=== PATIENT | female | born 1965 | race American Indian/Alaskan Native ===

== ENCOUNTER 2017-02-03 13:48 | Emergency (ER) | payer MEDICAID ==
[2017-02-03] MEDS ORDERED: Acetaminophen/oxyCODONE 325-5 MG Tab PO ONE (15:01)
--- NOTE | 2017-02-03 15:32 | EDM.PDOC ---
ED HPI GENERAL MEDICAL PROBLEM - General Chief Complaint: General Stated Complaint: Lupus Time Seen by Provider: 02/03/17 14:45 Source of Information: Reports: Patient, RN Notes Reviewed History Limitations: Reports: No Limitations - History of Present Illness INITIAL COMMENTS - FREE TEXT/NARRATIVE: 52 year old female presents to the ED with complaints of bilateral hand and ankle pain and swelling for the past few days. This past year she was diagnosed with Lupus. She is from [place] but is in [place] staying with her daughter for a couple weeks. She saw her Black Studies Professor in December and was started on some new medication. She does not know the name of her medications. She is not currently on any pain medication. She has taken Percocet in the past without problems. She says she's been on steroids before in the past but they were stopped because they were giving her problems. She has a primary care provider in [place] as well. No fever, chills, chest pain, shortness of breath, abdominal pain, nausea, or vomiting. 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 Denies: Fever, Chills HEENT: Reports: No Symptoms. Denies: Vision Change Respiratory: Reports: No Symptoms. Denies: Shortness of Breath, Cough Cardiovascular: Reports: No Symptoms. Denies: Chest Pain GI/Abdominal: Reports: No Symptoms. Denies: Abdominal Pain, Nausea, Vomiting Musculoskeletal: Reports: Hand Pain, Other (ankle pain). Denies: Neck Pain Skin: Reports: No Symptoms. Denies: Rash Neurological: Reports: No Symptoms. Denies: Confusion, Dizziness, Headache, Numbness, Tingling, Weakness ED EXAM, GENERAL - Physical Exam Exam: See Below Exam Limited By: No Limitations General Appearance: Alert, WD/WN, No Apparent Distress Eye Exam: Bilateral Eye: EOMI, PERRL Respiratory/Chest: No Respiratory Distress, Lungs Clear, Normal Breath Sounds Cardiovascular: Normal Peripheral Pulses, Regular Rate, Rhythm, No Murmur GI/Abdominal: Normal Bowel Sounds, Soft, Non-Tender Extremities: Other (no current swelling or erythema to hands or ankles as reported in history) Neurological: Alert, Normal Cognition, No Motor/Sensory Deficits Skin Exam: Warm, Dry, Intact Course - Vital Signs Last Recorded V/S: Last Vital Signs Temp 98.2 F 02/03/17 14:26 Pulse 68 02/03/17 14:26 Resp 16 02/03/17 14:26 BP 152/91 H 02/03/17 14:26 Pulse Ox 99 02/03/17 14:26 - Orders/Labs/Meds Meds: Medications Discontinued Medications Generic Name Dose Route Start Last Admin Trade Name Rebecca PRN Reason Stop Dose Admin Oxycodone/Acetaminophen 1 tab 02/03/17 15:01 02/03/17 15:24 Percocet 325-5 Mg PO 02/03/17 15:02 1 tab ONETIME ONE Administration - Re-Assessments/Exams Free Text/Narrative Re-Assessment/Exam: The patient is unsure what medications she is taking. Plan will be to give her pain medication and have her call her PCP and Black Studies Professor tomorrow. Discussed starting the patient on steroids but she says these made "things worse " in the past. I am reluctant to start her on any steroids at this since she reports adverse effects in the past and the fact that she is unsure what medications she is taking. Discussed with Dr. Perez who agrees with plan of care. Departure - Departure Time of Disposition: 15:32 Disposition: Home, Self-Care 01 Condition: Good Clinical Impression: Joint pain Qualifiers: Joint pain location: unspecified Qualified Code(s): M25.50 - Pain in unspecified joint - Discharge Information Prescriptions: oxyCODONE HCl/Acetaminophen [Oxycodone-Acetaminophen 5-325] 1 each PO Q6H PRN # 15 tablet PRN Reason: Pain Forms: ED Department Discharge Additional Instructions: Call your Black Studies Professor and primary care provider tomorrow to discuss your symptoms Percocet 1 tab every 6 hours as needed for pain Do not drive for at least 8 hours after taking Percocet
[2017-02-03 16:57] VITALS: BP 150/99
== END 2017-02-03 16:00 | disposition home or self-care (01) ==
LOC: JD.ED 13:48
DX: M25.50 Pain in unspecified joint (principal); I10 Essential (primary) hypertension; F17.210 Nicotine dependence, cigarettes, uncomplicated
CPT/HCPCS: 99284; A9270; 99283

== ENCOUNTER 2017-02-10 11:58 | Emergency (ER) | payer MEDICAID ==
[2017-02-10 12:19] VITALS: BP 178/91
--- NOTE | 2017-02-10 13:15 | EDM.PDOC ---
ED HPI GENERAL MEDICAL PROBLEM - General Chief Complaint: Back Pain or Injury Stated Complaint: JOINT PAIN AND BACK PAIN Time Seen by Provider: 02/10/17 12:19 Source of Information: Reports: Patient, RN Notes Reviewed History Limitations: Reports: No Limitations - History of Present Illness INITIAL COMMENTS - FREE TEXT/NARRATIVE: The patient states that she has been experiencing pain to her bilateral MCP joints, PIP joints, ankles, and low back, for about the past 3 weeks. She was seen in this ED 02/03/2017 for the same complaints. No tests were done, but the patient was prescribed Percocet. She was instructed to follow-up, which she has not. The patient states that she is visiting her daughter from [place], and will not be returning home until 02/19/2017. She states that while she has not followed up since her last ED visit, she did contact the office of her Inverform Machine Operator/pain specialist, Dr. Donaldo Monroy, and that she has an appointment to see him on 02/25/2017. The patient was previously prescribed imipramine and vitamin B6, however, she has not filled these prescriptions. Currently, the only prescription that she has from Dr. Monroy is Plaquenil. The remainder of her medications are prescribed by her PCP, Dr. Donis. The patient states that she has previously been treated with steroids, but was discontinued this past November,. Back Pain Score (Numeric/FACES): 7 Generalized Pain Score (Numeric/FACES): 7 - Related Data Allergies Allergy/AdvReac Type Severity Reaction Status Date / Time No Known Allergies Allergy Verified 02/03/17 14:26 Home Meds: Home Meds Betamethasone/Propylene Glyc [Betamethasone DP Aug 0.05%] 1 dose TOP BID PRN 04/12 [History] Fluticasone Propionate [Flovent] 2 spray H[place]ILTON DAILY 02/03/17 [History] Gabapentin [Neurontin] 3 cap PO BEDTIME 02/03/17 [History] Hydroxychloroquine [Plaquenil] 1 tab PO DAILY 02/03/17 [History] Imipramine HCl 20 mg PO BID 02/03/17 [History] Ipratropium [Atrovent] 2 spray H[place]ILTON BEDTIME 02/03/17 [History] Pyridoxine HCl (Vitamin B6) [B-6] 50 mg PO DAILY 02/03/17 [History] Albuterol Sulfate [Proventil Hfa] 1 dose INH ASDIRECTED PRN 02/10/17 [History] Cetirizine HCl [All Day Allergy] 10 mg PO DAILY 02/10/17 [History] EPINEPHrine [Epipen] 0.3 mg IM ONETIME PRN 02/10/17 [History] Imipramine HCl 1 tab PO TID #90 tablet 02/10/17 [Rx] Lisinopril 40 mg PO DAILY 02/10/17 [History] Omeprazole 20 mg PO DAILY 02/10/17 [History] Propylene Glycol/PEG 400/Pf [Systane Ultra 0.4-0.3% Eye Drp] 1 each OP DAILY [History] Triamcinolone Acetonide [Triamcinolone Acetonide 0.1% Crm] 1 applic TOP ASDIRECTED PRN 02/10/17 [History] hydrOXYzine HCl [Atarax] 25 mg PO BEDTIME 02/10/17 [History] Past Medical History Cardiovascular History: Reports: Hypertension Gastrointestinal History: Reports: GERD Genitourinary History: Reports: Urinary Incontinence 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 Right: 1 open), Other (See Below) (Bilateral feet bone spur removal. Left bunionectomy.) Social & Family History - Tobacco Use Smoking Status *Q: Current Every Day Smoker Years of Tobacco use: 30 Packs/Tins Daily: 0.4 - Caffeine Use Caffeine Use: Reports: Coffee - Alcohol Use Alcohol Use History: Yes Alcohol Use Frequency: Socially - Recreational Drug Use Recreational Drug Use: No - Living Situation & Occupation Living situation: Reports: Single, Alone Occupation: Unemployed ED ROS GENERAL - Review of Systems Review Of Systems: See Below Constitutional: Reports: Chills HEENT: Reports: No Symptoms Respiratory: Reports: No Symptoms Cardiovascular: Reports: No Symptoms Endocrine: Reports: No Symptoms GI/Abdominal: Reports: No Symptoms : Reports: No Symptoms Musculoskeletal: Reports: No Symptoms Skin: Reports: No Symptoms Neurological: Reports: Headache Psychiatric: Reports: No Symptoms Hematologic/Lymphatic: Reports: No Symptoms Immunologic: Reports: No Symptoms ED EXAM, GENERAL - Physical Exam Exam: See Below Exam Limited By: No Limitations General Appearance: Alert, WD/WN, No Apparent Distress Extremities: Other (No significant swelling or synovitis noted to any of the MCP or PIP joints. No apparent pain with handshake. No significant ankle swelling. No calor to any joint. No visible abnormality to the low back, and no tenderness to palpation.) Neurological: Alert, Oriented, Normal Cognition Psychiatric: Normal Affect Skin Exam: Warm, Dry, Intact, Normal Color, No Rash Course - Vital Signs Last Recorded V/S: Last Vital Signs Temp 36.9 C 02/10/17 12:13 Pulse 80 02/10/17 12:13 Resp 18 02/10/17 12:13 BP 178/91 H 02/10/17 12:13 Pulse Ox 98 02/10/17 12:13 - Orders/Labs/Meds Labs: Laboratory Tests 02/10/17 02/10/17 02/10/17 Range/Units 13:24 13:24 13:25 WBC 4.47 (3.98-10.04) K/mm3 RBC 4.46 (3.98-5.22) M/mm3 Hgb 13.1 (11.2-15.7) gm/L Hct 40.2 (34.1-44.9) % MCV 90.1 (79.4-94.8) fl MCH 29.4 (25.6-32.2) pg MCHC 32.6 (32.2-35.5) g/dl RDW Std Deviation 46.6 H (36.4-46.3) fL Plt Count 288 (182-369) K/mm3 MPV 9.5 (9.4-12.3) fl Neutrophils % (Manual) 37 L (40-60) % Band Neutrophils % 0 (0-10) % Lymphocytes % (Manual) 52 H (20-40) % Atypical Lymphs % 0 % Monocytes % (Manual) 9 (2-10) % Eosinophils % (Manual) 2 (0.7-5.8) % Basophils % (Manual) 0 L (0.1-1.2) Platelet Estimate Adequate RBC Morph Comment Normal Sodium 143 (136-145) mEq/L Potassium 4.3 (3.5-5.1) mEq/L Chloride 106 (98-107) mEq/L Carbon Dioxide 27 (21-32) mEq/L Anion Gap 14.3 (5-15) BUN 11 (7-18) mg/dL Creatinine 0.7 (0.55-1.02) mg/dL Est Cr Clr Drug Dosing 76.00 mL/min Estimated GFR (MDRD) > 60 (>60) mL/min BUN/Creatinine Ratio 15.7 (14-18) Glucose 99 (74-106) mg/dL Calcium 9.5 (8.5-10.1) mg/dL Urine Color Yellow (Yellow) Urine Appearance Clear (Clear) Urine pH 7.0 (5.0-8.0) Ur Specific [place] 1.015 (1.005-1.030) Urine Protein Negative (Negative) Urine Glucose (UA) Negative (Negative) Urine Ketones Negative (Negative) Urine Occult Blood Negative (Negative) Urine Nitrite Negative (Negative) Urine Bilirubin Negative (Negative) Urine Urobilinogen 0.2 (0.2-1.0) Ur Leukocyte Esterase Trace H (Negative) Urine RBC Not seen (0-5) /hpf Urine WBC 0-5 (0-5) /hpf Ur Epithelial Cells 0-5 (0-5) /hpf Urine Bacteria Not seen (FEW) /hpf Urine Mucus Not seen (FEW) /hpf Urine Trichomonas Present - Re-Assessments/Exams Free Text/Narrative Re-Assessment/Exam: 02/10/17 13:12 Case discussed at length with the patient's Inverform Machine Operator and pain specialist, Dr. Monroy, at 12:57. He is not sure that the patient has SLE. He feels she more than likely has Sjogren's. He recommends we avoid opioids. He does not feel that she is having a flare, since she did not appear to have pain with handshakes. He is recommending that we check a CBC, BMP, and urinalysis, and if otherwise normal, start the patient on imipramine 10 mg TID. If she develops drowsiness with this, he recommends she switches to 30 mg QHS. If, after a few days, she does not develop drowsiness, he recommends that she increase the dosage to 20 mg TID. 02/10/17 14:43 The patient's CBC, BMP, and urinalysis are all unremarkable. We do not carry imipramine 10 mg; I will e-prescribe. Departure - Departure Time of Disposition: 14:44 Disposition: Home, Self-Care 01 Condition: Good Clinical Impression: Joint ache - Discharge Information Prescriptions: Imipramine HCl 1 tab PO TID #90 tablet Referrals: PCP,Not In Area [Primary Care Provider] - Forms: ED Department Discharge Additional Instructions: You were seen in the emergency room for recurrent joint aches in your hands and ankles, and low back pain. Workup in the ER included blood work and a urinalysis, all of which were normal. After discussion with your Inverform Machine Operator/pain physician, Dr. Monroy, you have been prescribed imipramine. This prescription was called into the [facility] on [address]. Take one tablet 3 times a day. If this causes drowsiness, switch to 3 tablets at bedtime. If, after 3 days, you do not have drowsiness, increase your dosage to 3 tablets 3 times a day. Follow-up with Dr. Monroy at the next available appointment. If any other problems, please do not hesitate to return to the ER.
== END 2017-02-10 14:55 | disposition home or self-care (01) ==
LOC: JD.ED 11:58
DX: M25.572 Pain in left ankle and joints of left foot (principal); M25.571 Pain in right ankle and joints of right foot; M25.542 Pain in joints of left hand; M25.541 Pain in joints of right hand; M54.5 Low back pain; I10 Essential (primary) hypertension; K21.9 Gastro-esophageal reflux disease without esophagitis; G62.9 Polyneuropathy, unspecified; F32.9 Major depressive disorder, single episode, unspecified; F17.210 Nicotine dependence, cigarettes, uncomplicated; Z98.49 Cataract extraction status, unspecified eye; Z98.51 Tubal ligation status; Z98.890 Other specified postprocedural states; Z79.899 Other long term (current) drug therapy
CPT/HCPCS: 36415; 80048; 81001; 85025; 99283

== ENCOUNTER 2017-02-13 14:56 | Emergency (ER) | payer MEDICAID ==
[2017-02-13 15:24] VITALS: BP 125/83
[2017-02-13] MEDS ORDERED: Ketorolac 30 MG/ML SDV IM ONE (16:15)
[2017-02-13] MEDS ORDERED: diphenhydrAMINE 50 MG/ML SDV IM ONE (16:15)
--- NOTE | 2017-02-13 16:19 | EDM.PDOC ---
ED HPI GENERAL MEDICAL PROBLEM - General Chief Complaint: Skin Complaint Stated Complaint: BACK PAIN Time Seen by Provider: 02/13/17 16:06 Source of Information: Reports: Patient History Limitations: Reports: No Limitations - History of Present Illness INITIAL COMMENTS - FREE TEXT/NARRATIVE: 52 year old female presents for evaluation and treatment of a reaction to her hair dye. Patient reports she used an at home hair dye product Alvaro night and developed a reaction to the product. She reports she has rinsed her hair since using the product. She reports pruritus and discomfort to the scalp. Describes the discomfort as a "heaviness". Denies any chest pain, nausea or vomiting. She stats she feels short of breath. She did not take any benadryl or other OTC product as she did not have any at home. Patient is sleeping when I enter the room. As I am walking out of the room after completing my H&P, the patient asks for something for pain. When I asked what is causing her pain she starts listing her back, feet, joints.. and trails off. I feel she may be drug seeking. Headache Pain Score (Numeric/FACES): 8 - Related Data Allergies Allergy/AdvReac Type Severity Reaction Status Date / Time hair dye Allergy Rash Uncoded 02/14/17 15:53 Home Meds: Home Meds Betamethasone/Propylene Glyc [Betamethasone DP Aug 0.05%] 1 dose TOP BID PRN 04/12 [History] Fluticasone Propionate [Flovent] 2 spray HAMILTON DAILY 02/03/17 [History] Gabapentin [Neurontin] 3 cap PO BEDTIME 02/03/17 [History] Hydroxychloroquine [Plaquenil] 1 tab PO DAILY 02/03/17 [History] Imipramine HCl 20 mg PO BID 02/03/17 [History] Ipratropium [Atrovent] 2 spray [place]AMILTON BEDTIME 02/03/17 [History] Pyridoxine HCl (Vitamin B6) [B-6] 50 mg PO DAILY 02/03/17 [History] Albuterol Sulfate [Proventil Hfa] 1 dose INH ASDIRECTED PRN 02/10/17 [History] Cetirizine HCl [All Day Allergy] 10 mg PO DAILY 02/10/17 [History] EPINEPHrine [Epipen] 0.3 mg IM ONETIME PRN 02/10/17 [History] Imipramine HCl 1 tab PO TID #90 tablet 02/10/17 [Rx] Lisinopril 40 mg PO DAILY 02/10/17 [History] Omeprazole 20 mg PO DAILY 02/10/17 [History] Propylene Glycol/PEG 400/Pf [Systane Ultra 0.4-0.3% Eye Drp] 1 each OP DAILY [History] Triamcinolone Acetonide [Triamcinolone Acetonide 0.1% Crm] 1 applic TOP ASDIRECTED PRN 02/10/17 [History] hydrOXYzine HCl [Atarax] 25 mg PO BEDTIME 02/10/17 [History] predniSONE [Deltasone] 20 mg PO BID #14 tablet 02/14/17 [Rx] Past Medical History Cardiovascular History: Reports: Hypertension Respiratory History: Reports: SOB Gastrointestinal History: Reports: GERD Genitourinary History: Reports: Urinary Incontinence 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: Musculoskeletal History: Reports: Fibromyalgia, Other (See Below) Other Musculoskeletal History: pt has lupus/sjogren's syndrome Neurological History: Reports: Neuropathy, Peripheral Psychiatric History: Reports: Depression Immunologic History: Reports: Other (See Below) Dermatologic History: Reports: Eczema - Past Surgical History HEENT Surgical History: Reports: Cataract Surgery Female Surgical History: Reports: Tubal Ligation Musculoskeletal Surgical History: Reports: Shoulder Surgery, Other (See Below) Social & Family History - Family History Family Medical History: Noncontributory - Tobacco Use Smoking Status *Q: Current Every Day Smoker Years of Tobacco use: 30 Packs/Tins Daily: 0.3 - Caffeine Use Caffeine Use: Reports: Coffee - Recreational Drug Use Recreational Drug Use: No - Living Situation & Occupation Living situation: Reports: Single, Alone Occupation: Unemployed ED ROS GENERAL - Review of Systems Review Of Systems: See Below Respiratory: Reports: Shortness of Breath Cardiovascular: Denies: Chest Pain GI/Abdominal: Denies: Nausea, Vomiting Musculoskeletal: Reports: Back Pain, Foot Pain, Joint Pain Skin: Reports: Pruritis (scalp) ED EXAM, SKIN/RASH Exam: See Below Exam Limited By: No Limitations General Appearance: Alert, WD/WN, No Apparent Distress Eye Exam: Bilateral Eye: Normal Inspection Ears: Normal External Exam Nose: Normal Inspection Throat/Mouth: Normal Inspection, Normal Lips, Normal Voice, No Airway Compromise Head: Atraumatic, Normocephalic Neck: Normal Inspection Respiratory/Chest: No Respiratory Distress, Lungs Clear, Normal Breath Sounds Cardiovascular: Normal Peripheral Pulses, Regular Rate, Rhythm, No Murmur Neurological: Alert, Oriented, Normal Cognition Psychiatric: Normal Affect, Normal Mood Skin: Warm, Dry, Normal Color Location, Skin: Head (scalp described as a heaviness and pruritus) Associated features: Crusting (to the posterior left ear with matted hair stuck to hte area) Course - Vital Signs Last Recorded V/S: Last Vital Signs Temp 37.3 C 02/13/17 15:19 Pulse 80 02/13/17 15:19 Resp 20 02/13/17 15:19 BP 125/83 02/13/17 15:19 Pulse Ox 100 02/13/17 15:19 - Orders/Labs/Meds Meds: Medications Discontinued Medications Generic Name Dose Route Start Last Admin Trade Name Rebecca PRN Reason Stop Dose Admin Diphenhydramine HCl 50 mg 02/13/17 16:15 02/13/17 16:49 Benadryl IM 02/13/17 16:16 50 mg ONETIME ONE Administration Ketorolac Tromethamine 30 mg 02/13/17 16:15 02/13/17 16:48 Toradol IM 02/13/17 16:16 30 mg ONETIME ONE Administration Ketorolac Tromethamine Confirm 02/13/17 16:37 02/13/17 16:50 Toradol Administered 02/13/17 16:38 Not Given Dose 30 mg .ROUTE .STK-MED ONE - Re-Assessments/Exams Free Text/Narrative Re-Assessment/Exam: 02/13/17 16:10 Patient searched on [facility] aware to include [place]. 20 Rx from 9 prescribers within the last year for controlled substances. Most recently percocoet 5-325 # 15 on 02-03-17 and gabapentin 400mg #90 on 02-10-17. I will give her some benadryl for her symptoms and toradol for the pain. I reviewed her recent ER records. During her last visit, the ER provider spoke with her senior c web developer in [place] who recommended against prescribing narcotics for her pain. Departure - Departure Time of Disposition: 16:16 Disposition: Home, Self-Care 01 Condition: Fair Clinical Impression: Dermatitis - Discharge Information Instructions: Contact Dermatitis, [id number] Referrals: PCP,Not In Area [Primary Care Provider] - Forms: ED Department Discharge Additional Instructions: Avoid using the hair dye in the future. benadryl and Toradol given for symptom relief in the ER today. Take Benadryl every 6 hours for the next 2-3 days to help with your symptom relief. Rinse your hair again tonight. Please return to the ER if your symptoms change or worsen.
[2017-02-13] MEDS ORDERED: Ketorolac 30 MG/ML SDV ONE (16:37)
== END 2017-02-13 17:38 | disposition home or self-care (01) ==
LOC: JD.ED 14:56
DX: L30.9 Dermatitis, unspecified (principal); I10 Essential (primary) hypertension; K21.9 Gastro-esophageal reflux disease without esophagitis; F32.9 Major depressive disorder, single episode, unspecified; Z98.49 Cataract extraction status, unspecified eye; F17.210 Nicotine dependence, cigarettes, uncomplicated; Z91.048 Other nonmedicinal substance allergy status; Z79.899 Other long term (current) drug therapy
CPT/HCPCS: 96372; 99283; J1200; J1885

== ENCOUNTER 2017-02-14 15:39 | Emergency (ER) | payer MEDICAID ==
[2017-02-14 15:53] VITALS: BP 121/85
--- NOTE | 2017-02-14 16:45 | EDM.PDOC ---
ED HPI GENERAL MEDICAL PROBLEM - General Chief Complaint: ENT Problem Stated Complaint: EYES SWOLLEN Time Seen by Provider: 02/14/17 16:44 Source of Information: Reports: Patient History Limitations: Reports: No Limitations - History of Present Illness INITIAL COMMENTS - FREE TEXT/NARRATIVE: 52-year-old female presents to the ED with increased problems from contact dermatitis with hair dye that she used a few days ago to dye her hair. She was here yesterday and had developed a contact dermatitis mainly involving the skin of the nape of her neck and upper back. She presents today because of marked swelling of her eyes particularly upper eyelids they are markedly edematous and swollen. Forehead is erythematous scalp is losing serous material from the severe dermatitis similarly she has blistering and serous drainage from the tops of her earlobes and posterior to her ears. This area is also very pruritic. She was prescribed Benadryl yesterday which she is taking 50 mg every 6 hours. Onset: Gradual (Symptoms started 3 days ago.) Onset Date: 02/11/17 Duration: Day(s): Location: Reports: Head (Particularly the scalp.), Face, Neck Quality: Reports: Burning, Other Severity: Severe (Oozing serous fluid) Improves with: Reports: None Worsens with: Reports: None Context: Reports: Other (Symptoms started after using hair dye to blacken her hair. 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) Ear Pain Score (Numeric/FACES): 8 - Related Data Allergies Allergy/AdvReac Type Severity Reaction Status Date / Time hair dye Allergy Rash Uncoded 02/14/17 15:53 Home Meds: Home Meds Betamethasone/Propylene Glyc [Betamethasone DP Aug 0.05%] 1 dose TOP BID PRN 04/12 [History] Fluticasone Propionate [Flovent] 2 spray HAMILTON DAILY 02/03/17 [History] Gabapentin [Neurontin] 3 cap PO BEDTIME 02/03/17 [History] Hydroxychloroquine [Plaquenil] 1 tab PO DAILY 02/03/17 [History] Imipramine HCl 20 mg PO BID 02/03/17 [History] Ipratropium [Atrovent] 2 spray HAMILTON BEDTIME 02/03/17 [History] Pyridoxine HCl (Vitamin B6) [B-6] 50 mg PO DAILY 02/03/17 [History] Albuterol Sulfate [Proventil Hfa] 1 dose INH ASDIRECTED PRN 02/10/17 [History] Cetirizine HCl [All Day Allergy] 10 mg PO DAILY 02/10/17 [History] EPINEPHrine [Epipen] 0.3 mg IM ONETIME PRN 02/10/17 [History] Imipramine HCl 1 tab PO TID #90 tablet 02/10/17 [Rx] Lisinopril 40 mg PO DAILY 02/10/17 [History] Omeprazole 20 mg PO DAILY 02/10/17 [History] Propylene Glycol/PEG 400/Pf [Systane Ultra 0.4-0.3% Eye Drp] 1 each OP DAILY [History] Triamcinolone Acetonide [Triamcinolone Acetonide 0.1% Crm] 1 applic TOP ASDIRECTED PRN 02/10/17 [History] hydrOXYzine HCl [Atarax] 25 mg PO BEDTIME 02/10/17 [History] predniSONE [Deltasone] 20 mg PO BID #14 tablet 02/14/17 [Rx] Past Medical History Cardiovascular History: Reports: Hypertension Respiratory History: Reports: SOB Gastrointestinal History: Reports: GERD Genitourinary History: Reports: Urinary Incontinence 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: Musculoskeletal History: Reports: Fibromyalgia, Other (See Below) Other Musculoskeletal History: pt has lupus/sjogren's syndrome Neurological History: Reports: Neuropathy, Peripheral Psychiatric History: Reports: Depression Immunologic History: Reports: Other (See Below) Dermatologic History: Reports: Eczema - Past Surgical History HEENT Surgical History: Reports: Cataract Surgery Female Surgical History: Reports: Tubal Ligation Musculoskeletal Surgical History: Reports: Shoulder Surgery, Other (See Below) Social & Family History - Family History Family Medical History: Noncontributory - Tobacco Use Smoking Status *Q: Current Every Day Smoker Years of Tobacco use: 20 Packs/Tins Daily: 0.2 - Caffeine Use Caffeine Use: Reports: Coffee - Recreational Drug Use Recreational Drug Use: No - Living Situation & Occupation Living situation: Reports: Single, Alone Occupation: Unemployed ED ROS GENERAL - Review of Systems Review Of Systems: See Below Constitutional: Denies: Fever, Chills, Malaise, Weakness, Fatigue, Diaphoresis, Decreased Appetite, Weight Loss HEENT: Reports: Ear Pain (Her pain from the ear pinnas and drainage from blistering on the tops of the earlobes and drainage from the scalp behind her ears bilaterally worse on the left as compared to the right.), Other (Eyes are very swollen in fact nearly closed on the right side due to edema in the eyelids.). Denies: Eye Discharge Respiratory: Reports: Shortness of Breath (No worse than normal.) Cardiovascular: Reports: No Symptoms Endocrine: Reports: Fatigue (From the Benadryl.) GI/Abdominal: Reports: Constipation Musculoskeletal: Reports: Muscle Pain (Patient has generalized muscular pain from fibromyalgia syndrome. She apparently also has systemic lupus. She is on plaque with no for this.) Skin: Reports: Erythema (Skin of the scalp is erythematous and oozing serous material. There is crusting and serous material in the earlobes and posterior to ears bilaterally. The forehead is erythematous but skin is intact without blisters. Both eyes are markedly swollen and edematous particular the upper lids . Right eyelid is worse than the left.) Neurological: Reports: No Symptoms Psychiatric: Reports: No Symptoms ED EXAM GENERAL W FULL EYE - Physical Exam Exam: See Below Exam Limited By: No Limitations General Appearance: Moderate Distress, Other (Eyes are very swollen bilaterally particularly the upper lids are edematous worse on the right as compared to the left.) Eye Exam: Bilateral Eye: Normal Fundi, Periorbital Changes (Marked swelling of the upper and lower eyelids bilaterally right greater than left. The right is so swollen that she can barely see out of this eye.), PERRL Cornea Exam: Bilateral: Normal Appearance Ears: Other (Patient has inflammation and swelling of the earlobes particularly superiorly and posterior tear ears. There is some mild blistering and serous drainage) Nose: Normal Inspection Throat/Mouth: Normal Inspection, Normal Oropharynx Head: Other (Scalp is very tender and swollen and is oozing serous material as well from contact dermatitis inflammation.) Neck: Other (No blisters in this area. Forehead is also erythematous without blistering.). No: Lymphadenopathy (L), Lymphadenopathy (R) Respiratory/Chest: No Respiratory Distress, Lungs Clear, No Accessory Muscle Use Course - Vital Signs Last Recorded V/S: Last Vital Signs Temp 37.3 C 02/14/17 15:47 Pulse 98 02/14/17 15:47 Resp 18 02/14/17 15:47 BP 121/85 02/14/17 15:47 Pulse Ox 96 02/14/17 15:47 - Orders/Labs/Meds Meds: Medications Discontinued Medications Generic Name Dose Route Start Last Admin Trade Name Rebecca PRN Reason Stop Dose Admin Methylprednisolone Sodium Succinate 125 mg 02/14/17 17:37 Solu-Medrol IM 02/14/17 17:38 ONETIME ONE - Radiology Interpretation Free Text/Narrative:: 52-year-old female presents to the ED with an acute severe allergic response to hair dye. This is created a contact dermatitis of the scalp involving her ears negative neck lateral neck skin and eyelids are markedly swollen and edematous bilaterally. Forehead is mildly erythematous without blistering. Scalp is oozing serous material from it severe allergic response. Plan Solu-Medrol 125 mg IM. Prednisone 20 mg with breakfast and supper for the next 7 consecutive days. Departure - Departure Time of Disposition: 17:37 Disposition: Home, Self-Care 01 Condition: Fair Clinical Impression: Contact dermatitis Qualifiers: Contact dermatitis type: allergic Contact dermatitis trigger: dye Qualified Code(s): L23.4 - Allergic contact dermatitis due to dyes - Discharge Information Prescriptions: predniSONE [Deltasone] 20 mg PO BID #14 tablet Referrals: PCP,Not In Area [Primary Care Provider] - Forms: ED Department Discharge Additional Instructions: Evaluation in the emergency room today in regards to obvious marked swelling of the eye lids with large amount of fluid accumulation in both upper and lower eyelids worse on the right as compared to the left. Also noted is blistering in serous drainage from the scalp as well as the earlobes with marked erythema and rash nape of neck. This appears to be a severe allergic reaction or contact dermatitis from hair dye. Treated today with intramuscular Solu-Medrol 125 mg and then you are to take oral Deltasone 20 mg with breakfast and supper for the next 7 days. First tablet would be due tomorrow morning. Once the skin is been in contact with the hair dye it causes a continued allergic response for approximately 1 week. Of course no further use of hair dyes in the future.
[2017-02-14] MEDS ORDERED: methylPREDNISolone Sodium Succinate 125 MG/2 ML SDV IM ONE (17:37)
== END 2017-02-14 17:50 | disposition home or self-care (01) ==
LOC: JD.ED 15:39
DX: L23.4 Allergic contact dermatitis due to dyes (principal); F17.210 Nicotine dependence, cigarettes, uncomplicated; I10 Essential (primary) hypertension; K21.9 Gastro-esophageal reflux disease without esophagitis; F32.9 Major depressive disorder, single episode, unspecified; Z98.49 Cataract extraction status, unspecified eye; Z98.51 Tubal ligation status; Z98.890 Other specified postprocedural states; Z79.899 Other long term (current) drug therapy; Z91.048 Other nonmedicinal substance allergy status
CPT/HCPCS: 96372; 99283; J2930

== ENCOUNTER 2017-02-16 13:37 | Emergency (ER) | payer MEDICAID ==
[2017-02-16 14:17] VITALS: BP 133/86
[2017-02-16] MEDS ORDERED: predniSONE 20 MG Tab PO ONE (14:55)
--- NOTE | 2017-02-16 14:57 | EDM.PDOC ---
ED HPI GENERAL MEDICAL PROBLEM - General Chief Complaint: Back Pain or Injury Stated Complaint: chemical burn Time Seen by Provider: 02/16/17 14:28 Source of Information: Reports: Patient History Limitations: Reports: No Limitations - History of Present Illness INITIAL COMMENTS - FREE TEXT/NARRATIVE: 52-year-old female presents to the ED complaining of contact dermatitis to the head, eyes, ears, and neck from hair dye applied a few days ago. Patient was evaluated in the E.D. 02/14/27 and prescribed prednisone. Patient has not filled this medication since she can't afford it. She will be seeing her PCP the of this month for reevaluation. Patient is accompanied to the E.D. with her daughter. Dermatitis to the head, neck, and face are improving. She only has draining from behind the ears. This is improving as well. Eyes remain swollen but improving. No visual disturbances noted. Continues to take benadryl for itching. Denies any additional complaints at this time. Lower Back Pain Score (Numeric/FACES): 8 - Related Data Allergies Allergy/AdvReac Type Severity Reaction Status Date / Time hair dye Allergy Rash Uncoded 02/16/17 19:01 Home Meds: Home Meds Betamethasone/Propylene Glyc [Betamethasone DP Aug 0.05%] 1 dose TOP BID PRN 04/12 [History] Fluticasone Propionate [Flovent] 2 spray [place] DAILY 02/03/17 [History] Gabapentin [Neurontin] 3 cap PO BEDTIME 02/03/17 [History] Hydroxychloroquine [Plaquenil] 1 tab PO DAILY 02/03/17 [History] Imipramine HCl 20 mg PO BID 02/03/17 [History] Ipratropium [Atrovent] 2 spray [place] BEDTIME 02/03/17 [History] Pyridoxine HCl (Vitamin B6) [B-6] 50 mg PO DAILY 02/03/17 [History] Albuterol Sulfate [Proventil Hfa] 1 dose INH ASDIRECTED PRN 02/10/17 [History] Cetirizine HCl [All Day Allergy] 10 mg PO DAILY 02/10/17 [History] Imipramine HCl 1 tab PO TID #90 tablet 02/10/17 [Rx] Lisinopril 40 mg PO DAILY 02/10/17 [History] Omeprazole 20 mg PO DAILY 02/10/17 [History] Propylene Glycol/PEG 400/Pf [Systane Ultra 0.4-0.3% Eye Drp] 1 each OP DAILY [History] Triamcinolone Acetonide [Triamcinolone Acetonide 0.1% Crm] 1 applic TOP ASDIRECTED PRN 02/10/17 [History] hydrOXYzine HCl [Atarax] 25 mg PO BEDTIME 02/10/17 [History] predniSONE [Deltasone] 20 mg PO BID #14 tablet 02/14/17 [Rx] Past Medical History Cardiovascular History: Reports: Hypertension Respiratory History: Reports: SOB Gastrointestinal History: Reports: GERD Genitourinary History: Reports: Urinary Incontinence 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: Musculoskeletal History: Reports: Fibromyalgia, Other (See Below) Other Musculoskeletal History: pt has lupus/sjogren's syndrome Neurological History: Reports: Neuropathy, Peripheral Psychiatric History: Reports: Depression Immunologic History: Reports: Other (See Below) Dermatologic History: Reports: Eczema - Past Surgical History HEENT Surgical History: Reports: Cataract Surgery Female Surgical History: Reports: Tubal Ligation Musculoskeletal Surgical History: Reports: Shoulder Surgery, Other (See Below) Social & Family History - Family History Family Medical History: Noncontributory - Tobacco Use Smoking Status *Q: Current Every Day Smoker Years of Tobacco use: 20 Packs/Tins Daily: 0.4 - Caffeine Use Caffeine Use: Reports: Coffee, Soda - Recreational Drug Use Recreational Drug Use: No Recreational Drug Type: Reports: Marijuana/Hashish - Living Situation & Occupation Living situation: Reports: Single, Alone Occupation: Unemployed ED ROS GENERAL - Review of Systems Review Of Systems: ROS reveals no pertinent complaints other than HPI. ED EXAM, SKIN/RASH Exam: See Below Exam Limited By: No Limitations General Appearance: Alert, WD/WN, No Apparent Distress Eye Exam: Bilateral Eye: EOMI, PERRL, Other (Faint swelling to the upper eyelids bilaterally. No redness, draining, or eye discomfort. ) Ears: Normal Canal, Hearing Grossly Normal, Other (Ears Bilaterally: oozing to the posterior aspect of the pinna. mild pain. no redness. minimal swelling. improving per patinet. ) Nose: Normal Inspection, Normal Mucosa, No Blood Throat/Mouth: Normal Inspection, Normal Oropharynx, Normal Voice, No Airway Compromise Head: Other (Scalp is dry with mild flaking of skin. No oozing. No pain. No redness swelling present. ) Neck: Other (Dry skin noted to the posterior/lateral/medial neck. No oozing, redness, swelling, or increased warmth. ). No: Lymphadenopathy (L), Lymphadenopathy (R) Respiratory/Chest: No Respiratory Distress, Lungs Clear, Normal Breath Sounds, No Accessory Muscle Use, Chest Non-Tender Cardiovascular: Normal Peripheral Pulses, Regular Rate, Rhythm Peripheral Pulses: 2+: Radial (L) Neurological: Alert, Oriented, CN II-XII Intact, Normal Cognition, No Motor/ Sensory Deficits Psychiatric: Normal Affect, Normal Mood Skin: Warm Course - Vital Signs Last Recorded V/S: Last Vital Signs Temp 98.9 F 02/16/17 14:15 Pulse 73 02/16/17 14:15 Resp 20 02/16/17 14:15 BP 133/86 02/16/17 14:15 Pulse Ox 97 02/16/17 14:15 - Orders/Labs/Meds Meds: Medications Discontinued Medications Generic Name Dose Route Start Last Admin Trade Name Rebecca PRN Reason Stop Dose Admin Prednisone 40 mg 02/16/17 14:55 02/16/17 15:20 Prednisone PO 02/16/17 14:56 40 mg ONETIME ONE Administration - Re-Assessments/Exams Free Text/Narrative Re-Assessment/Exam: Order prednisone 40 mg by mouth and also bacitracin to be applied behind the patient's ears. She has not filled her prednisone prescription yet since she cannot afford it. This will not be filled until the . Daughter states she can pay for the prescription tomorrow. Will discharge patient home with instructions as documented. Departure - Departure Time of Disposition: 16:35 Disposition: Home, Self-Care 01 Condition: Good Clinical Impression: Allergic reaction Qualifiers: Encounter type: subsequent encounter Qualified Code(s): T78.40XD - Allergy, unspecified, subsequent encounter - Discharge Information Referrals: PCP,Not In Area [Primary Care Provider] - Forms: ED Department Discharge Additional Instructions: Take oral prednisone 20 mg with breakfast and supper for the next 7 days. Apply bacitracin to posterior aspect of the ears twice daily until healed. Followup with PCP when you return home. Take Benadryl 50 mg every 6 hours as needed with itching present. Can also take Pepcid 20 mg one tab every day for the duration of rash. Return to the E.D. for any new or worsening symptoms. Once the skin is been in contact with the hair dye it causes a continued allergic response for approximately 1 week.
== END 2017-02-16 16:40 | disposition home or self-care (01) ==
LOC: JD.ED 13:37
DX: L23.4 Allergic contact dermatitis due to dyes (principal); I10 Essential (primary) hypertension; K21.9 Gastro-esophageal reflux disease without esophagitis; F32.9 Major depressive disorder, single episode, unspecified; F17.210 Nicotine dependence, cigarettes, uncomplicated; Z98.49 Cataract extraction status, unspecified eye; Z98.51 Tubal ligation status; Z98.890 Other specified postprocedural states; Z79.899 Other long term (current) drug therapy; Z91.048 Other nonmedicinal substance allergy status
CPT/HCPCS: 99283; A9270; 99282